=== PATIENT | male | born 2000 | race Caucasian/White ===

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

== ENCOUNTER 2019-01-24 13:54 | Emergency (ER) | payer MEDICAID, OTHER ==
[~2019-01-24] VITALS: Ht 188 cm; Wt 98.4 kg
[2019-01-24 13:59] VITALS: BP 143/93
--- NOTE | 2019-01-24 15:00 | NUR ---
Patient ambulated to bed 12. RN evaluating patient at bedside.
--- NOTE | 2019-01-24 15:01 | NUR ---
BIB PARENTS WITH C/O LEFT KNEE PAIN 10/10 ACHING S/P WALKING AND TWISTING IT 2 HOURS AGO. PT UNABLE TO EXTEND LLE. PALPABLE MASS NOTED TO ANTERIOR ASPECT OF L KNEE, -ERYTHEMA, ECCHYMOSIS, EDEMA. CMS INTACT.
[2019-01-24] MEDS ORDERED: IBUPROFEN 800 MG TAB PO ONE (15:05)
--- NOTE | 2019-01-24 16:27 | NUR ---
Patient discharged with v/s stable. Written and verbal after care instructions given and explained. Patient alert, oriented and verbalized understanding of instructions. Ambulatory with steady gait. All questions addressed prior to discharge. ID band removed. Patient advised to follow up with PMD. Rx of ANAPROX given. Patient educated on indication of medication including possible reaction and side effects. Opportunity to ask questions provided and answered.
[2019-01-24 16:30] VITALS: BP 140/90
== END 2019-01-24 16:27 | disposition home or self-care (01) ==
LOC: MED 13:54
DX: S83.92XA Sprain of unspecified site of left knee, initial encounter (principal); M89.8X6 Other specified disorders of bone, lower leg; I10 Essential (primary) hypertension; F41.9 Anxiety disorder, unspecified; X50.1XXA Overexertion from prolonged static or awkward postures, initial encounter; Y93.89 Activity, other specified; Y92.89 Other specified places as the place of occurrence of the external cause; Y99.8 Other external cause status
CPT/HCPCS: 29505; 73562; 99283; Q0092

== ENCOUNTER 2020-05-16 19:44 | Emergency (ER) | payer MEDICAID ==
[~2020-05-16] VITALS: Ht 188 cm; Wt 104.3 kg
[2020-05-16 19:49] VITALS: BP 150/82
--- NOTE | 2020-05-16 20:06 | NUR ---
20 Y/O M PRESENTS TO ED C/O "NOT FEELING WELL" AFTER TAKING MUSHROOMS 1 HOUR AGO. PT STATES THAT HE TOOK 1 GM OF MUSHROOMS TODAY AND THIS IS HIS FIRST TIME TAKING IT. PT STATES "EVERYTHING LOOKS FAKE." RR EVEN AND UNLABORED. NO OTHER COMPLAINS AT THIS TIME. BED LOCKED AND IN LOWEST POSITION, SIDE RAIL UP X1. WILL CONTINUE TO MONITOR. MHX: DENIES NKA
--- NOTE | 2020-05-16 20:08 | NUR ---
DR. VASQUEZ AT BEDSIDE EVALUATING PATIENT.
[2020-05-16] MEDS ORDERED: ONDANSETRON 4 MG ODT PO ONE (20:15)
[2020-05-16 20:38] VITALS: BP 150/82
--- NOTE | 2020-05-16 20:38 | NUR ---
Patient discharged with v/s stable. Ambulatory with steady gait. PT LEFT WITHOUT DISCHARGE PAPERWORKS.
== END 2020-05-16 20:38 | disposition home or self-care (01) ==
LOC: MED 19:44
DX: R44.3 Hallucinations, unspecified (principal); F19.90 Other psychoactive substance use, unspecified, uncomplicated; I10 Essential (primary) hypertension; F17.200 Nicotine dependence, unspecified, uncomplicated; F12.90 Cannabis use, unspecified, uncomplicated
CPT/HCPCS: 99283; Q0162; 99282

== ENCOUNTER 2022-06-04 12:51 | Emergency (ER) | payer MEDICAID ==
[~2022-06-04] VITALS: Ht 190.5 cm; Wt 122.0 kg
[2022-06-04 13:00] VITALS: BP 160/91
--- NOTE | 2022-06-04 13:35 | NUR ---
22/M PRESENTS TO ED WITH C/O LEFT LEG PAIN, STATES HE INJURED HIS LEG 5 YEARS DURING FOOTBALL AND BELIEVES IT IS RELATED, DENIES RECENT INJURY OR TRAUMA. DENIES TAKING MEDS FOR PAIN.
[2022-06-04 14:43] VITALS: BP 160/91
--- NOTE | 2022-06-04 14:44 | NUR ---
Patient discharged with v/s stable. Written and verbal after care instructions ABOUT CHRONIC KNEE PAIN given and explained. Patient verbalized understanding. Ambulatory with steady gait. All questions addressed prior to discharge. Advised to follow up with PMD.
== END 2022-06-04 14:44 | disposition home or self-care (01) ==
LOC: MED 12:51
DX: M25.562 Pain in left knee (principal); I10 Essential (primary) hypertension
CPT/HCPCS: 99282